=== PATIENT | female | born 1960 | race Caucasian/White ===

== ENCOUNTER 2020-02-09 08:29 | Outpatient (CLI) | payer BC | END 2020-02-09 19:12 | disposition home or self-care (01) | LOC: SLB 08:29 | PROVIDERS: ATTEND Obstetrics & Gynecology | DX: U07.1 COVID-19 (principal) | CPT/HCPCS: 36415 ==

== ENCOUNTER 2020-02-19 18:02 | Emergency (ER) | payer BC ==
[~2020-02-19] VITALS: Ht 157.5 cm; Wt 59.0 kg
[2020-02-19 18:10] VITALS: BP_SYST 116
--- NOTE | 2020-02-19 18:10 | NUR ---
PT WAITING IN ER TENT UNTIL ER BED BECOMES AVAILABLE
--- NOTE | 2020-02-19 18:15 | NUR ---
PT AAO AND AMBULATORY REPORTING WORSENING FEVER AND THAT SHE TAKES TYLENOL ATC. PT DENIES ANY PAIN CURRENTLY BUT STATES SHE WAS PRESCRIBED DOXYCYCLINE AND ONLY TOOK IT FOR 5 DAYS AND RECENTLY STARTED A ZPAK 2 DAYS AGO.
--- NOTE | 2020-02-19 18:20 | NUR ---
DR. BREWSTER TO TENT TO EVALUATE PT STATUS
[2020-02-19 18:40] VITALS: BP_SYST 116
--- NOTE | 2020-02-19 18:40 | NUR ---
Patient given written and verbal discharge instructions and verbalizes understanding. ER MD discussed with patient the results and treatment provided. Patient in stable condition. ID arm band removed. Rx of TESSLON AND TRAMADOL given. Patient educated on pain management and to follow up with PMD. Pain Scale 0/10. Opportunity for questions provided and answered. Medication side effect fact sheet provided.
== END 2020-02-19 18:40 | disposition home or self-care (01) ==
LOC: SED 18:02
DX: U07.1 COVID-19 (principal)
CPT/HCPCS: 99283